=== PATIENT | female | born 1945 | race Caucasian/White ===

== ENCOUNTER → 2019-01-30 09:56 | Outpatient (CLI) | payer MEDICARE, MEDICAID ==
[2011-07-21 18:21] VITALS: BMI 42.1
--- NOTE | ~2019-01-30 | ST ---
PATIENT:CORAZON CURIEL MEDICAL RECORD: [id number] SEX: F LOCATION:[facility] ORDER #: ADMISSION DATE: 01/30/19 AGE OF PATIENT: 73 REFERRING PHYSICIAN: INTERPRETING PHYSICIAN: MARCUS BRADLEY MD DATE OF SERVICE: 01/30/2019 PROCEDURE: Nuclear stress test. INDICATION: Angina, coronary artery disease, hypertension, and abnormal ECG. She was exercised on standard Lexiscan protocol with 31 mCi of sestamibi injected at peak stress, 11 mCi were used previously for rest images. FINDINGS: Gated SPECT reveals a preserved ejection fraction at 65% with good wall motioning and thickening and brightening throughout all segments. SPECT imaging Cardiolite was used as myocardial perfusion agent. There is definite reversible ischemia inferiorly. This includes the basal, mid, apical inferior segments. The degree of reversibility is moderate. The amount of myocardium involved is moderate. OVERALL IMPRESSION: 1. This is an abnormal nuclear stress test. Reversible ischemia inferiorly. 2. Gated SPECT reveals preserved ejection fraction at 65%. In this patient with ongoing symptomatology, the current scan does suggest the presence of hemodynamically significant coronary artery disease. We would proceed with coronary angiography as followup study. TRANSINT:[id number] Voice Confirmation ID: [id number] DOCUMENT ID: [id number] MARCUS BRADLEY MD CC: [id number] DICTATION DATE: 01/30/19 1606 CONTRACTS SPECIALIST: 01/31/19 0702 DEP CLI 01/30/19 [facility] [address] [place] [address]
--- NOTE | ~2019-01-30 | EC ---
PATIENT:CORAZON CURIEL DATE OF SERVICE: 01/30/19 SEX: F MEDICAL RECORD: [id number] DATE OF : 43 [facility] AGE [facility] PATIENT: 73 ADMISSION DATE: 01/30/19 REFERRING PHYSICIAN: INTERPRETING PHYSICIAN: MARCUS MARISCAL MD ECHOCARDIOGRAM REPORT ECHO CHARGES 4 ECHO COMPLETE Date: 01/30/19 CLINICAL DIAGNOSIS: HTN,FATIGUE,MALAISE ASSESS LV FUNCTION ECHOCARDIOGRAPHIC MEASUREMENTS (adult normal given) AC root (d.<3.7cm) 2.9 cm LV Septum d (<1.2 cm> 1.0 cm Valve Excursion 1.6 cm LV Septum (systole) 1.1 cm Left Atria (s.<4.0cm> 3.5 cm LVPW d(<1.2cm) 1.2 cm RV (d.<2.3cm) 2.7 cm LVPW (sytole) 1.8 cm LV diastole(<5.6CM) 5.0 cm MV E-F(>70mm/sec) cm LV systole 3.7 cm LVOT Diameter 1.9 cm MV exc.(>10mm) 1.1 cm Est.ejection fraction (50-75%) % DOPPLER: LVIT cm/sec A cm/sec E cm/sec LA cm/sec RVSP 18 mmHg LVOT 80 cm/sec AOP1/2T m/s Asc. Ao 108 cm/sec RVOT 64 cm/sec RA cm/sec PA 97 cm/sec AV Gradient Peak 4.69 mmHg AV Mean 2.46 mmHg AV Area 2.3 cm MV Gradient Peak 4.55 mmHg MV Mean 1.56 mmHg MV Area cm COMMENTS: Market Gardener: Sara HERRING Wool Classer: 1 Dr. Mariscal TAPE# PACS Pericardial Effusion N DATE OF SERVICE: 01/30/2019 FINDINGS: 1. Left ventricular chamber size is within normal limits. Left ventricular systolic function is normal. Overall ejection fraction estimated at 60%. 2. Left atrium, right atrium, and right ventricular chamber sizes are within normal limits. 3. Valvular structures have normal structure and motion. 4. Doppler interrogation reveals no significant valvular insufficiency or stenosis. ECHOCARDIOGRAM REPORT [id number] CORAZON CURIEL 5. No evidence of pericardial effusion or left ventricular thrombus. TRANSINT:[id number] Voice Confirmation ID: [id number] DOCUMENT ID: [id number] MARCUS MARISCAL MD CC: [id number] DICTATION DATE: 01/30/19 1555 PLASTICS SCIENTIST: 01/30/19 1614 [address] [place] [id number] [place] [id number]
== END | disposition home or self-care (01) ==
LOC: D.HCCARDIO 09:56
PROVIDERS: ATTEND Internal Medicine Interventional Cardiology
DX: I25.10 Atherosclerotic heart disease of native coronary artery without angina pectoris (principal); I10 Essential (primary) hypertension